=== PATIENT | male | born 1985 | race Caucasian/White ===

== ENCOUNTER 2018-03-09 11:19 | Emergency (ER) | payer SELFPAY ==
[~2018-03-09] VITALS: Ht 175.3 cm; Wt 85.3 kg
[2018-03-09 11:24] VITALS: Ht 175.3 cm; Wt 85.3 kg
[2018-03-09 12:20] VITALS: BP 127/70
== END 2018-03-09 12:20 | disposition home or self-care (01) ==
LOC: ED 11:19
DX: M54.5 Low back pain (principal)